=== PATIENT | female | born 1965 ===

== ENCOUNTER 2016-03-29 21:32 | Inpatient (IN) ==
[2016-03-29] MEDS ORDERED: ONDANSETRON 4 MG/2 ML VIAL ONE (21:47)
[2016-03-29] MEDS ORDERED: ONDANSETRON 4 MG/2 ML VIAL IV STA (21:48)
[2016-03-29] MEDS ORDERED: HYDROmorphone 2 MG/1 ML VIAL IV PRN (22:27)
[2016-03-29] MEDS ORDERED: ACETAMINOPHEN 325 MG TABLET PO PRN (22:27)
[2016-03-29] MEDS ORDERED: ONDANSETRON 4 MG/2 ML VIAL IV PRN (22:27)
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
[2016-03-29] MEDS ORDERED: LACTATED RINGERS 1,000 ML IV SCH (22:30)
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
[2016-03-30] MEDS ORDERED: ACETAMINOPHEN 325 MG TABLET PO PRN (07:53)
[2016-03-30] MEDS ORDERED: ALUMINUM/MAGNES/SIMETH MAX STR 30 ML UDCUP PO PRN (07:53)
[2016-03-30] MEDS ORDERED: BISACODYL 5 MG TABLET PO PRN (07:53)
[2016-03-30] MEDS ORDERED: HYDROmorphone 2 MG/1 ML VIAL IV PRN (08:00)
--- NOTE | 2016-03-30 08:13 | XRay Report ---
Exam: XR chest 2V Indication: No fracture pulmonary contusions Comparison study: 12/02/2010 chest radiograph and chest CT dated 03/29/16 Findings: Cardiac silhouette is normal in size. There are patchy perihilar and basilar interstitial and airspace opacities, which are nonspecific and may represent atelectasis or pulmonary contusions. There is no pneumothorax. The rib fractures seen on the prior CT images are not well demonstrated radiographically. Impression: Slight worsening of basilar opacities may represent atelectasis/contusions. Multiple left-sided rib fractures seen on prior cross-sectional images are not well-demonstrated radiographically. There is no pneumothorax identified. PROCEDURE INTERPRETED AT [facility] DEPARTMENT OF RADIOLOGY Final Report Signed by: Jeferson Perez
[2016-03-30 08:14] LABS: Eosinophils % 0.3 % (0.00-10.9); Hematocrit 36.9 VOL% (35.7-47.0); Hemoglobin 11.8 GM/DL (12.0-16.0); Immature Granulocytes % 0.3 %; Immature Granulocytes Absolute 0.02 #; Lymphocytes # 2.4 10*3/uL (1.4-4.0); Lymphocytes % 34.7 % (21.3-54.2); Mean Corpuscular Hemoglobin 27 PG (27-34); Mean Corpuscular Volume 84.8 FL (87-102); Mean Platelet Volume 9.8 FL (9.6-12.0); Monocytes # 0.5 10*3/uL (0.11-0.8); Monocytes % 7.8 % (1.7-12.7); Neutrophils % 56.9 % (38.7-73.9); Platelet Count 161 10*3/uL (130-400); Red Blood Count 4.35 10*6/uL (3.8-5.5); Red Cell Distribution Width 17.6 % (9.3-17.3); White Blood Count 6.9 10*3/uL (4.5-13.71)
--- NOTE | 2016-03-30 08:34 | EKG Report ---
Stationary ECG Study [facility] Test Date: 03/30/2016 8:32:51 AM Pat Name: JENNIFER TRENT Department: Room: 276 Gender: F Applied Technologist: MICHELLE : 1965 Requested by: Oliver Felix Order Number: [id number] Reading MD: JANET DAIGLE Intervals [place] Rate: 89 P: 45 MI: 160 QRS: -1 QRSD: 90 T: 6 QT: 365 QTc: 412 Interpretive Statements SINUS RHYTHM POSSIBLE ANTERIOR MYOCARDIAL INFARCTION, PROBABLY OLD Electronically Signed On 03-30-16 13:41:03 [employer]PER[employer] by JANET DAIGLE [id number]
[2016-03-30 08:43] LABS: Allen Test Positive
[2016-03-30 08:45] LABS: ABG HCO3 25.2 MMOL/L (20-26); ABG Oxygen Saturation 91.8 % (95-100); ABG PCO2 44.9 MM HG (35-48); ABG PH 7.379 (7.35-7.45); ABG PO2 61.9 MM HG (80-95); ABG TCO2 23.7 MMOL/L (23-27)
[2016-03-30 08:51] LABS: Albumin 3.4 G/DL (3.4-5.0); Bilirubin,Total 0.6 MG/DL (0.2-1.0); Calcium 8.5 MG/DL (8.5-10.1); Osmolality,Calculated 292.6 MOS/KG (273-304); Potassium 3.6 MMOL/L (3.5-5.1); Total Protein 6.5 G/DL (6.4-8.3)
[2016-03-30] MEDS: KETOROLAC 15 MG/1 ML VIAL IV SCH ×2 (08:54→17:40)
[2016-03-30] MEDS: DOCUSATE SODIUM 100 MG CAPSULE PO SCH ×2 (08:57→21:38)
[2016-03-30] MEDS: PANTOPRAZOLE 40 MG TABLET PO SCH (08:57)
[2016-03-30] MEDS: DEXTROSE 5% NACL 0.45% 1,000 ML IV SCH ×2 (08:58→17:39)
[2016-03-30] MEDS ORDERED: PANTOPRAZOLE 40 MG TABLET PO SCH (09:00)
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
[2016-03-30 10:04] LABS: CKMB % 0.8 %; Troponin I Only < 0.015 NG/ML (0.00-0.045)
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
[2016-03-30] MEDS: FLUTICASONE/SALMETEROL 250-50 DISKUS 14 DOSE INH SCH ×2 (11:03→21:38)
[2016-03-30] MEDS: methylPREDNISolone SOD SUC 40 MG/1 ML VIAL IV SCH ×2 (11:04→21:38)
[2016-03-30] MEDS: cefTRIAXone 1,000 MG in SODIUM CHLORIDE 0.9% 100 ML IV SCH (11:06)
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
[2016-03-30 16:57] LABS: CKMB % 0.5 %; Troponin I Only < 0.015 NG/ML (0.00-0.045)
[2016-03-30] MEDS: LIDOCAINE 5% PATCH TRANSDERM SCH (17:43)
[2016-03-30] MEDS: fentaNYL 12 MCG/HR PATCH TRANSDERM SCH (17:43)
[2016-03-30] MEDS: ALBUTEROL/IPRATROPIUM 3 ML NEB RESP TX SCH ×2 (20:21→23:51)
[2016-03-30 22:39] LABS: CKMB % 0.4 %; Troponin I Only < 0.015 NG/ML (0.00-0.045)
[2016-03-31] MEDS: KETOROLAC 15 MG/1 ML VIAL IV SCH ×3 (00:09→17:36)
[2016-03-31] MEDS: DEXTROSE 5% NACL 0.45% 1,000 ML IV SCH ×3 (01:47→18:49)
[2016-03-31] MEDS: ALBUTEROL/IPRATROPIUM 3 ML NEB RESP TX SCH ×5 (03:22→21:36)
[2016-03-31 05:30] LABS: Hematocrit 35.3 VOL% (35.7-47.0); Hemoglobin 11.2 GM/DL (12.0-16.0); Immature Granulocytes % 0.5 %; Immature Granulocytes Absolute 0.04 #; Lymphocytes # 1.1 10*3/uL (1.4-4.0); Lymphocytes % 12.5 % (21.3-54.2); Mean Corpuscular HGB Conc 31.7 GM/DL (32-36); Mean Corpuscular Hemoglobin 27 PG (27-34); Mean Corpuscular Volume 84.4 FL (87-102); Mean Platelet Volume 10.3 FL (9.6-12.0); Monocytes # 0.4 10*3/uL (0.11-0.8); Monocytes % 4.6 % (1.7-12.7); Neutrophils # 6.9 10*3/uL (1.4-7.4); Neutrophils % 82.4 % (38.7-73.9); Platelet Count 154 10*3/uL (130-400); Red Blood Count 4.18 10*6/uL (3.8-5.5); Red Cell Distribution Width 17.3 % (9.3-17.3); White Blood Count 8.4 10*3/uL (4.5-13.71)
[2016-03-31 05:53] LABS: Hypochromasia Slight; Microcytosis 1+
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
[2016-03-31 05:54] LABS: Ovalocytes Few; Platelet Estimate Adequate
[2016-03-31 06:05] LABS: Albumin 3.1 G/DL (3.4-5.0); Bilirubin,Total 0.7 MG/DL (0.2-1.0); Calcium 8.3 MG/DL (8.5-10.1); Osmolality,Calculated 298.1 MOS/KG (273-304); Potassium 3.5 MMOL/L (3.5-5.1); Total Protein 6.3 G/DL (6.4-8.3)
[2016-03-31 07:39] LABS: Amorphous Crystals,Urine Occasional /HPF (Few); Apearance,Urine CLEAR (Clear); Bacteria,Urine Occasional /HPF (Few); Bilirubin,Urine Negative (Negative); Blood, Urine Small mg/dL (Negative); Glucose,Urine (UA) 50 mg/dL (Negative); Ketones,Urine Negative (Negative); Mucus,Urine Occasional /LPF (Occasional); Nitrite,Urine Negative (Negative); Protein,Urine Negative; RBC,Urine 3 /HPF (0-4); Squamous Epithelial Cell,Urine Occasional /HPF (0-10); Urine Color Yellow (Yellow); Urine Specific Gravity 1.011 (1.001-1.035); Urine Urobilinogen < 2.0 EU/DL (0.2-1.0); WBC,Urine 1 /HPF (0-6)
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
[2016-03-31 08:55] LABS: ABG Base Excess 2.6 MMOL/L (-2.5-2.5); ABG HCO3 26.3 MMOL/L (20-26); ABG Oxygen Saturation 75.9 % (95-100); ABG PCO2 41.9 MM HG (35-48); ABG PH 7.422 (7.35-7.45); ABG TCO2 24.6 MMOL/L (23-27)
[2016-03-31 09:00] LABS: ABG PO2 39.5 MM HG (80-95)
[2016-03-31] MEDS: DOCUSATE SODIUM 100 MG CAPSULE PO SCH ×2 (09:39→23:41)
[2016-03-31] MEDS: MORPHINE ER 15 MG TABLET PO SCH ×2 (09:39→23:40)
[2016-03-31] MEDS: PANTOPRAZOLE 40 MG TABLET PO SCH (09:39)
[2016-03-31] MEDS: ALUMINUM/MAGNES/SIMETH MAX STR 30 ML UDCUP PO SCH ×3 (09:43→17:36)
[2016-03-31] MEDS: LIDOCAINE 5% PATCH TRANSDERM SCH (09:44)
[2016-03-31] MEDS: FLUTICASONE/SALMETEROL 250-50 DISKUS 14 DOSE INH SCH ×2 (09:45→23:40)
[2016-03-31] MEDS: methylPREDNISolone SOD SUC 40 MG/1 ML VIAL IV SCH ×2 (09:46→23:41)
[2016-03-31] MEDS: cefTRIAXone 1,000 MG in SODIUM CHLORIDE 0.9% 100 ML IV SCH (09:49)
[2016-03-31 10:08] LABS: ABG Base Excess 2.8 MMOL/L (-2.5-2.5); ABG HCO3 26.7 MMOL/L (20-26); ABG Oxygen Saturation 91.7 % (95-100); ABG PCO2 38.2 MM HG (35-48); ABG PH 7.462 (7.35-7.45); ABG PO2 60.9 MM HG (80-95); ABG TCO2 27.9 MMOL/L (23-27)
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
[2016-04-01] MEDS: ALBUTEROL/IPRATROPIUM 3 ML NEB RESP TX SCH ×7 (00:43→23:54)
[2016-04-01] MEDS: DEXTROSE 5% NACL 0.45% 1,000 ML IV SCH ×2 (03:02→11:09)
[2016-04-01 05:13] LABS: Hematocrit 34.2 VOL% (35.7-47.0); Lymphocytes # 1.2 10*3/uL (1.4-4.0); Mean Corpuscular HGB Conc 32.2 GM/DL (32-36); Mean Corpuscular Hemoglobin 27 PG (27-34); Mean Corpuscular Volume 84.2 FL (87-102); Monocytes # 0.3 10*3/uL (0.11-0.8); Monocytes % 2.7 % (1.7-12.7); Neutrophils # 8.1 10*3/uL (1.4-7.4); Neutrophils % 84.3 % (38.7-73.9); Platelet Count 148 10*3/uL (130-400); Red Blood Count 4.06 10*6/uL (3.8-5.5); Red Cell Distribution Width 17.4 % (9.3-17.3); White Blood Count 9.6 10*3/uL (4.5-13.71)
[2016-04-01 05:45] LABS: Calcium 8.4 MG/DL (8.5-10.1); Magnesium 2.4 MG/DL (1.8-2.4); Osmolality,Calculated 297.1 MOS/KG (273-304); Potassium 3.6 MMOL/L (3.5-5.1)
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
[2016-04-01] MEDS: KETOROLAC 15 MG/1 ML VIAL IV SCH ×3 (07:34→16:38)
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
[2016-04-01] MEDS: MORPHINE ER 15 MG TABLET PO SCH ×2 (10:06→22:03)
[2016-04-01] MEDS: DOCUSATE SODIUM 100 MG CAPSULE PO SCH ×2 (10:06→22:03)
[2016-04-01] MEDS: ALUMINUM/MAGNES/SIMETH MAX STR 30 ML UDCUP PO SCH ×3 (10:07→17:23)
[2016-04-01] MEDS: methylPREDNISolone SOD SUC 40 MG/1 ML VIAL IV SCH ×2 (10:09→22:04)
[2016-04-01] MEDS: cefTRIAXone 1,000 MG in SODIUM CHLORIDE 0.9% 100 ML IV SCH (10:11)
[2016-04-01] MEDS: FLUTICASONE/SALMETEROL 250-50 DISKUS 14 DOSE INH SCH ×2 (10:11→22:05)
[2016-04-01] MEDS: LIDOCAINE 5% PATCH TRANSDERM SCH (10:13)
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
[2016-04-01] MEDS: PANTOPRAZOLE 40 MG TABLET PO SCH (11:10)
[2016-04-02] MEDS: KETOROLAC 15 MG/1 ML VIAL IV SCH ×4 (01:48→23:56)
[2016-04-02] MEDS: DEXTROSE 5% NACL 0.45% 1,000 ML IV SCH (01:48)
[2016-04-02] MEDS: ALBUTEROL/IPRATROPIUM 3 ML NEB RESP TX SCH ×6 (03:07→23:23)
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
[2016-04-02] MEDS ORDERED: FUROSEMIDE 40 MG/4 ML VIAL IV ONE (07:36)
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
[2016-04-02] MEDS: DOCUSATE SODIUM 100 MG CAPSULE PO SCH ×2 (08:26→21:22)
[2016-04-02] MEDS: PANTOPRAZOLE 40 MG TABLET PO SCH (08:26)
[2016-04-02] MEDS: methylPREDNISolone SOD SUC 40 MG/1 ML VIAL IV SCH (08:27)
[2016-04-02] MEDS: LIDOCAINE 5% PATCH TRANSDERM SCH (08:34)
[2016-04-02] MEDS: MORPHINE ER 15 MG TABLET PO SCH ×2 (08:44→21:22)
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
[2016-04-02] MEDS: fentaNYL 12 MCG/HR PATCH TRANSDERM SCH (10:53)
[2016-04-02] MEDS: ALUMINUM/MAGNES/SIMETH MAX STR 30 ML UDCUP PO SCH ×3 (10:53→18:52)
[2016-04-02] MEDS: cefTRIAXone 1,000 MG in SODIUM CHLORIDE 0.9% 100 ML IV SCH (10:54)
[2016-04-02] MEDS: FLUTICASONE/SALMETEROL 250-50 DISKUS 14 DOSE INH SCH ×2 (10:54→21:23)
[2016-04-02] MEDS: ONDANSETRON 4 MG/2 ML VIAL IV PRN (16:30)
[2016-04-03] MEDS: ALBUTEROL/IPRATROPIUM 3 ML NEB RESP TX SCH ×5 (03:05→20:32)
[2016-04-03 03:12] LABS: ABG Base Excess 6.6 MMOL/L (-2.5-2.5); ABG HCO3 30.4 MMOL/L (20-26); ABG Oxygen Saturation 94.4 % (95-100); ABG PCO2 45.9 MM HG (35-48); ABG PH 7.445 (7.35-7.45); ABG PO2 67.6 MM HG (80-95); ABG TCO2 28.7 MMOL/L (23-27); Allen Test Positive
[2016-04-03 05:46] LABS: Basophils % 0.1 % (0.0-0.8); Eosinophils % 0.5 % (0.00-10.9); Hematocrit 30.4 VOL% (35.7-47.0); Hemoglobin 9.6 GM/DL (12.0-16.0); Immature Granulocytes % 0.5 %; Immature Granulocytes Absolute 0.04 #; Lymphocytes # 3.7 10*3/uL (1.4-4.0); Lymphocytes % 41.1 % (21.3-54.2); Mean Corpuscular HGB Conc 31.6 GM/DL (32-36); Mean Corpuscular Hemoglobin 27 PG (27-34); Mean Corpuscular Volume 84.7 FL (87-102); Mean Platelet Volume 10.1 FL (9.6-12.0); Monocytes # 0.8 10*3/uL (0.11-0.8); Monocytes % 8.4 % (1.7-12.7); Neutrophils # 4.4 10*3/uL (1.4-7.4); Neutrophils % 49.4 % (38.7-73.9); Platelet Count 182 10*3/uL (130-400); Red Blood Count 3.59 10*6/uL (3.8-5.5); Red Cell Distribution Width 17.5 % (9.3-17.3); White Blood Count 8.9 10*3/uL (4.5-13.71)
[2016-04-03 06:14] LABS: Calcium 8.2 MG/DL (8.5-10.1); Magnesium 2.6 MG/DL (1.8-2.4); Osmolality,Calculated 289.6 MOS/KG (273-304); Potassium 3.5 MMOL/L (3.5-5.1)
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
[2016-04-03] MEDS: methylPREDNISolone SOD SUC 40 MG/1 ML VIAL IV SCH (09:01)
[2016-04-03] MEDS: KETOROLAC 15 MG/1 ML VIAL IV SCH ×2 (09:02→15:26)
[2016-04-03] MEDS: DOCUSATE SODIUM 100 MG CAPSULE PO SCH ×2 (09:03→20:35)
[2016-04-03] MEDS: LIDOCAINE 5% PATCH TRANSDERM SCH (09:03)
[2016-04-03] MEDS: FLUTICASONE/SALMETEROL 250-50 DISKUS 14 DOSE INH SCH ×2 (09:03→20:35)
[2016-04-03] MEDS: MORPHINE ER 15 MG TABLET PO SCH ×2 (09:07→20:35)
[2016-04-03] MEDS: ALUMINUM/MAGNES/SIMETH MAX STR 30 ML UDCUP PO SCH ×3 (09:08→17:55)
[2016-04-03] MEDS: PANTOPRAZOLE 40 MG TABLET PO SCH (09:09)
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
[2016-04-03] MEDS: cefTRIAXone 1,000 MG in SODIUM CHLORIDE 0.9% 100 ML IV SCH (12:42)
[2016-04-03] MEDS ORDERED: SODIUM CHLORIDE 0.9% 100 ML IV ONE (22:29)
[2016-04-04] MEDS: ALBUTEROL/IPRATROPIUM 3 ML NEB RESP TX SCH ×6 (00:33→19:53)
[2016-04-04] MEDS: KETOROLAC 15 MG/1 ML VIAL IV SCH (00:55)
[2016-04-04] MEDS: methylPREDNISolone SOD SUC 40 MG/1 ML VIAL IV SCH (09:15)
[2016-04-04] MEDS: PANTOPRAZOLE 40 MG TABLET PO SCH (09:17)
[2016-04-04] MEDS: MORPHINE ER 15 MG TABLET PO SCH ×2 (09:17→21:43)
[2016-04-04] MEDS: ALUMINUM/MAGNES/SIMETH MAX STR 30 ML UDCUP PO SCH ×3 (09:17→18:51)
[2016-04-04] MEDS: DOCUSATE SODIUM 100 MG CAPSULE PO SCH ×2 (09:17→21:43)
[2016-04-04] MEDS: FLUTICASONE/SALMETEROL 250-50 DISKUS 14 DOSE INH SCH ×2 (09:17→21:43)
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
[2016-04-04] MEDS: LIDOCAINE 5% PATCH TRANSDERM SCH (11:47)
[2016-04-04] MEDS: cefTRIAXone 1,000 MG in SODIUM CHLORIDE 0.9% 100 ML IV SCH (11:50)
[2016-04-05] MEDS: ALBUTEROL/IPRATROPIUM 3 ML NEB RESP TX SCH ×6 (00:51→19:53)
[2016-04-05 04:06] LABS: Basophils % 0.1 % (0.0-0.8); Eosinophils # 0.1 10*3/uL (0.0-0.87); Eosinophils % 1.3 % (0.00-10.9); Hematocrit 34.5 VOL% (35.7-47.0); Hemoglobin 10.8 GM/DL (12.0-16.0); Immature Granulocytes % 0.6 %; Immature Granulocytes Absolute 0.05 #; Lymphocytes # 3.3 10*3/uL (1.4-4.0); Lymphocytes % 37.7 % (21.3-54.2); Mean Corpuscular HGB Conc 31.3 GM/DL (32-36); Mean Corpuscular Hemoglobin 27 PG (27-34); Mean Corpuscular Volume 84.8 FL (87-102); Mean Platelet Volume 9.8 FL (9.6-12.0); Monocytes # 0.6 10*3/uL (0.11-0.8); Monocytes % 7.3 % (1.7-12.7); Neutrophils # 4.6 10*3/uL (1.4-7.4); Platelet Count 233 10*3/uL (130-400); Red Blood Count 4.07 10*6/uL (3.8-5.5); Red Cell Distribution Width 17.4 % (9.3-17.3); White Blood Count 8.7 10*3/uL (4.5-13.71)
[2016-04-05 04:33] LABS: Albumin 3.1 G/DL (3.4-5.0); Bilirubin,Total 1.1 MG/DL (0.2-1.0); Calcium 8.6 MG/DL (8.5-10.1); Osmolality,Calculated 285.7 MOS/KG (273-304); Potassium 4.6 MMOL/L (3.5-5.1); Total Protein 6.2 G/DL (6.4-8.3)
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
[2016-04-05] MEDS: MORPHINE ER 15 MG TABLET PO SCH ×2 (09:43→20:58)
[2016-04-05] MEDS: DOCUSATE SODIUM 100 MG CAPSULE PO SCH ×2 (09:44→20:58)
[2016-04-05] MEDS: methylPREDNISolone SOD SUC 40 MG/1 ML VIAL IV SCH (09:44)
[2016-04-05] MEDS: ALUMINUM/MAGNES/SIMETH MAX STR 30 ML UDCUP PO SCH ×3 (09:44→17:54)
[2016-04-05] MEDS: LIDOCAINE 5% PATCH TRANSDERM SCH (09:47)
[2016-04-05] MEDS: fentaNYL 12 MCG/HR PATCH TRANSDERM SCH (09:49)
[2016-04-05] MEDS: FLUTICASONE/SALMETEROL 250-50 DISKUS 14 DOSE INH SCH ×2 (09:50→20:58)
[2016-04-05] MEDS: PANTOPRAZOLE 40 MG TABLET PO SCH (09:52)
[2016-04-05] MEDS: cefTRIAXone 1,000 MG in SODIUM CHLORIDE 0.9% 100 ML IV SCH (09:56)
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
[2016-04-06] MEDS: ALBUTEROL/IPRATROPIUM 3 ML NEB RESP TX SCH ×5 (01:27→20:27)
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
[2016-04-06] MEDS: CEFUROXIME 500 MG TABLET PO SCH ×2 (09:56→20:57)
[2016-04-06] MEDS: MORPHINE ER 15 MG TABLET PO SCH ×2 (09:56→20:57)
[2016-04-06] MEDS: PANTOPRAZOLE 40 MG TABLET PO SCH (09:56)
[2016-04-06] MEDS: DOCUSATE SODIUM 100 MG CAPSULE PO SCH ×2 (09:56→20:57)
[2016-04-06] MEDS: predniSONE 20 MG TABLET PO SCH (09:56)
[2016-04-06] MEDS: LIDOCAINE 5% PATCH TRANSDERM SCH (09:57)
[2016-04-06] MEDS: ALUMINUM/MAGNES/SIMETH MAX STR 30 ML UDCUP PO SCH ×3 (09:57→17:56)
[2016-04-06] MEDS: FLUTICASONE/SALMETEROL 250-50 DISKUS 14 DOSE INH SCH ×2 (10:01→20:58)
[2016-04-06] MEDS: methylPREDNISolone SOD SUC 40 MG/1 ML VIAL IV SCH (10:22)
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
[2016-04-07] MEDS: ALBUTEROL/IPRATROPIUM 3 ML NEB RESP TX SCH ×4 (01:25→19:18)
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
[2016-04-07] MEDS: PANTOPRAZOLE 40 MG TABLET PO SCH (08:51)
[2016-04-07] MEDS: predniSONE 20 MG TABLET PO SCH (08:51)
[2016-04-07] MEDS: DOCUSATE SODIUM 100 MG CAPSULE PO SCH ×2 (08:51→20:52)
[2016-04-07] MEDS: LIDOCAINE 5% PATCH TRANSDERM SCH (08:52)
[2016-04-07] MEDS: CEFUROXIME 500 MG TABLET PO SCH ×2 (08:52→20:52)
[2016-04-07] MEDS: FLUTICASONE/SALMETEROL 250-50 DISKUS 14 DOSE INH SCH ×2 (08:57→20:52)
[2016-04-07] MEDS: ALUMINUM/MAGNES/SIMETH MAX STR 30 ML UDCUP PO SCH ×3 (09:00→19:05)
[2016-04-07] MEDS: MORPHINE ER 15 MG TABLET PO SCH ×2 (09:00→20:52)
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
[2016-04-08] MEDS: ALBUTEROL/IPRATROPIUM 3 ML NEB RESP TX SCH ×4 (00:57→19:43)
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
[2016-04-08 07:54] LABS: Basophils % 0.1 % (0.0-0.8); Eosinophils # 0.2 10*3/uL (0.0-0.87); Eosinophils % 1.4 % (0.00-10.9); Hematocrit 39.7 VOL% (35.7-47.0); Hemoglobin 12.2 GM/DL (12.0-16.0); Immature Granulocytes % 0.8 %; Immature Granulocytes Absolute 0.09 #; Lymphocytes # 3.3 10*3/uL (1.4-4.0); Lymphocytes % 29.4 % (21.3-54.2); Mean Corpuscular HGB Conc 30.7 GM/DL (32-36); Mean Corpuscular Hemoglobin 26 PG (27-34); Mean Corpuscular Volume 85.9 FL (87-102); Mean Platelet Volume 9.1 FL (9.6-12.0); Monocytes # 0.8 10*3/uL (0.11-0.8); Monocytes % 7.1 % (1.7-12.7); Neutrophils # 6.9 10*3/uL (1.4-7.4); Neutrophils % 61.2 % (38.7-73.9); Platelet Count 321 10*3/uL (130-400); Red Blood Count 4.62 10*6/uL (3.8-5.5); Red Cell Distribution Width 17.9 % (9.3-17.3); White Blood Count 11.3 10*3/uL (4.5-13.71)
[2016-04-08 08:22] LABS: Albumin 3.5 G/DL (3.4-5.0); Bilirubin,Total 0.7 MG/DL (0.2-1.0); Calcium 9.2 MG/DL (8.5-10.1); Osmolality,Calculated 282.1 MOS/KG (273-304); Potassium 4.9 MMOL/L (3.5-5.1); Total Protein 7.3 G/DL (6.4-8.3)
[2016-04-08] MEDS: FLUTICASONE/SALMETEROL 250-50 DISKUS 14 DOSE INH SCH ×2 (09:30→22:04)
[2016-04-08] MEDS: PANTOPRAZOLE 40 MG TABLET PO SCH (09:30)
[2016-04-08] MEDS: CEFUROXIME 500 MG TABLET PO SCH ×2 (09:30→22:04)
[2016-04-08] MEDS: LIDOCAINE 5% PATCH TRANSDERM SCH (09:30)
[2016-04-08] MEDS: MORPHINE ER 15 MG TABLET PO SCH ×2 (09:30→22:04)
[2016-04-08] MEDS: predniSONE 20 MG TABLET PO SCH (09:30)
[2016-04-08] MEDS: ALUMINUM/MAGNES/SIMETH MAX STR 30 ML UDCUP PO SCH ×3 (09:30→22:04)
[2016-04-08] MEDS: DOCUSATE SODIUM 100 MG CAPSULE PO SCH ×2 (09:30→22:04)
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
[2016-04-09] MEDS: ALBUTEROL/IPRATROPIUM 3 ML NEB RESP TX SCH ×4 (00:36→19:49)
[2016-04-09] MEDS: ONDANSETRON 4 MG/2 ML VIAL IV PRN (01:30)
[2016-04-09] MEDS: predniSONE 20 MG TABLET PO SCH (09:17)
[2016-04-09] MEDS: CEFUROXIME 500 MG TABLET PO SCH ×2 (09:18→20:29)
[2016-04-09] MEDS: DOCUSATE SODIUM 100 MG CAPSULE PO SCH ×2 (09:18→20:29)
[2016-04-09] MEDS: LIDOCAINE 5% PATCH TRANSDERM SCH (09:18)
[2016-04-09] MEDS: PANTOPRAZOLE 40 MG TABLET PO SCH (09:18)
[2016-04-09] MEDS: FLUTICASONE/SALMETEROL 250-50 DISKUS 14 DOSE INH SCH ×2 (09:19→20:29)
[2016-04-09] MEDS: ALUMINUM/MAGNES/SIMETH MAX STR 30 ML UDCUP PO SCH ×3 (09:27→17:44)
[2016-04-09] MEDS: MORPHINE ER 15 MG TABLET PO SCH ×2 (11:01→20:29)
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
[2016-04-10] MEDS: ALBUTEROL/IPRATROPIUM 3 ML NEB RESP TX SCH ×4 (00:13→19:59)
[2016-04-10] MEDS: ALUMINUM/MAGNES/SIMETH MAX STR 30 ML UDCUP PO SCH ×3 (09:23→17:59)
[2016-04-10] MEDS: LIDOCAINE 5% PATCH TRANSDERM SCH (09:23)
[2016-04-10] MEDS: PANTOPRAZOLE 40 MG TABLET PO SCH (09:24)
[2016-04-10] MEDS: predniSONE 20 MG TABLET PO SCH (09:24)
[2016-04-10] MEDS: DOCUSATE SODIUM 100 MG CAPSULE PO SCH ×2 (09:24→20:40)
[2016-04-10] MEDS: MORPHINE ER 15 MG TABLET PO SCH ×2 (09:24→20:41)
[2016-04-10] MEDS: CEFUROXIME 500 MG TABLET PO SCH ×2 (09:24→20:40)
[2016-04-10] MEDS: FLUTICASONE/SALMETEROL 250-50 DISKUS 14 DOSE INH SCH ×2 (09:25→20:40)
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
[2016-04-11] MEDS: ALBUTEROL/IPRATROPIUM 3 ML NEB RESP TX SCH ×4 (01:13→23:45)
[2016-04-11] MEDS: CEFUROXIME 500 MG TABLET PO SCH ×2 (08:42→20:25)
[2016-04-11] MEDS: predniSONE 20 MG TABLET PO SCH (08:42)
[2016-04-11] MEDS: LIDOCAINE 5% PATCH TRANSDERM SCH (08:42)
[2016-04-11] MEDS: PANTOPRAZOLE 40 MG TABLET PO SCH (08:42)
[2016-04-11] MEDS: MORPHINE ER 15 MG TABLET PO SCH ×2 (08:42→20:25)
[2016-04-11] MEDS: DOCUSATE SODIUM 100 MG CAPSULE PO SCH ×2 (08:43→20:25)
[2016-04-11] MEDS: ALUMINUM/MAGNES/SIMETH MAX STR 30 ML UDCUP PO SCH ×3 (08:43→17:12)
[2016-04-11] MEDS: FLUTICASONE/SALMETEROL 250-50 DISKUS 14 DOSE INH SCH ×2 (08:43→20:25)
--- NOTE | 2016-04-11 09:49 | Event Note ---
She has no complaints this morning. She has been ambulating off of the floor and the nurses state that she walked to the [facility] store yesterday. She has no complaints and her chest and abdomen are okay. I'm available this weekend if needed
[2016-04-12] MEDS: ALBUTEROL/IPRATROPIUM 3 ML NEB RESP TX SCH ×4 (00:26→19:20)
[2016-04-12 05:53] LABS: Basophils % 0.1 % (0.0-0.8); Eosinophils # 0.2 10*3/uL (0.0-0.87); Eosinophils % 2.4 % (0.00-10.9); Hematocrit 35.4 VOL% (35.7-47.0); Immature Granulocytes % 0.5 %; Immature Granulocytes Absolute 0.05 #; Lymphocytes % 31.9 % (21.3-54.2); Mean Corpuscular HGB Conc 31.1 GM/DL (32-36); Mean Corpuscular Hemoglobin 26 PG (27-34); Mean Corpuscular Volume 84.7 FL (87-102); Mean Platelet Volume 9.5 FL (9.6-12.0); Monocytes # 0.7 10*3/uL (0.11-0.8); Monocytes % 7.5 % (1.7-12.7); Neutrophils # 5.3 10*3/uL (1.4-7.4); Neutrophils % 57.6 % (38.7-73.9); Platelet Count 264 10*3/uL (130-400); Red Blood Count 4.18 10*6/uL (3.8-5.5); Red Cell Distribution Width 17.2 % (9.3-17.3); White Blood Count 9.3 10*3/uL (4.5-13.71)
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
[2016-04-12 06:24] LABS: Albumin 3.2 G/DL (3.4-5.0); Bilirubin,Total 0.5 MG/DL (0.2-1.0); Calcium 8.3 MG/DL (8.5-10.1); Osmolality,Calculated 288.7 MOS/KG (273-304); Potassium 4.4 MMOL/L (3.5-5.1); Total Protein 6.4 G/DL (6.4-8.3)
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
[2016-04-12] MEDS: FLUTICASONE/SALMETEROL 250-50 DISKUS 14 DOSE INH SCH ×2 (09:10→23:32)
[2016-04-12] MEDS: DOCUSATE SODIUM 100 MG CAPSULE PO SCH ×2 (09:10→21:07)
[2016-04-12] MEDS: LIDOCAINE 5% PATCH TRANSDERM SCH (09:10)
[2016-04-12] MEDS: MORPHINE ER 15 MG TABLET PO SCH ×2 (09:11→21:07)
[2016-04-12] MEDS: PANTOPRAZOLE 40 MG TABLET PO SCH (09:11)
[2016-04-12] MEDS: ALUMINUM/MAGNES/SIMETH MAX STR 30 ML UDCUP PO SCH ×3 (09:11→18:29)
[2016-04-13] MEDS: ALBUTEROL/IPRATROPIUM 3 ML NEB RESP TX SCH ×4 (00:22→20:39)
[2016-04-13] MEDS: FLUTICASONE/SALMETEROL 250-50 DISKUS 14 DOSE INH SCH (09:30)
[2016-04-13] MEDS: PANTOPRAZOLE 40 MG TABLET PO SCH (09:30)
[2016-04-13] MEDS: DOCUSATE SODIUM 100 MG CAPSULE PO SCH ×2 (09:30→21:55)
[2016-04-13] MEDS: ALUMINUM/MAGNES/SIMETH MAX STR 30 ML UDCUP PO SCH ×3 (09:30→18:37)
[2016-04-13] MEDS: LIDOCAINE 5% PATCH TRANSDERM SCH (11:43)
[2016-04-13] MEDS: MORPHINE ER 15 MG TABLET PO SCH ×2 (11:44→21:55)
--- NOTE | 2016-04-13 15:49 | Event Note ---
04/13/2016. We have attempted to go through insurance try to get her to either [facility] which has failed and been rejected and then we have tried to get her into rehabilitation and from what we can understand insurance has failed to give us any word on that at this point time and we understand that they may not have even been working the process to help us determine a time to see if we could get her there. Patient has improved significantly and will see at the possibility of getting her to a intermediate where she didn't go to [facility] and be checked every other day.
[2016-04-14] MEDS: FLUTICASONE/SALMETEROL 250-50 DISKUS 14 DOSE INH SCH ×2 (00:51→09:18)
[2016-04-14] MEDS: ALBUTEROL/IPRATROPIUM 3 ML NEB RESP TX SCH ×2 (01:00→08:27)
[2016-04-14 08:11] VITALS: BP 143/69
[2016-04-14] MEDS: PANTOPRAZOLE 40 MG TABLET PO SCH (09:19)
[2016-04-14] MEDS: MORPHINE ER 15 MG TABLET PO SCH (09:19)
[2016-04-14] MEDS: LIDOCAINE 5% PATCH TRANSDERM SCH (09:19)
[2016-04-14] MEDS: DOCUSATE SODIUM 100 MG CAPSULE PO SCH (09:19)
[2016-04-14] MEDS: ALUMINUM/MAGNES/SIMETH MAX STR 30 ML UDCUP PO SCH (09:19)
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
== END 2016-04-14 11:16 | disposition home or self-care, planned readmission (81) | DRG 183 ==
LOC: EDUNIT# → EDBD → N.ED 21:32 → N.EDINP 22:27 → N.TELES 22:54
PROVIDERS: ADMIT Specialist; ATTEND Specialist